=== PATIENT | female | born 1955 | race Two or more races ===

== ENCOUNTER 2018-10-07 22:03 | Emergency (ER) | payer OTHER ==
[~2018-10-07] VITALS: Ht 170.2 cm; Wt 79.8 kg
--- NOTE | 2018-10-07 22:10 | NUR ---
Patient ambulated with stable gait. A/Ox4. Patient came for c/o R.Knee pain x1 day. Pain 01/03. Localized to the knee, non-radiating. Respiratory even and unlabored, no cough no sob. Patient denies any fever, or chill. Patient states she has limited mobility in the RLE and ADL's when ambulating. Patient in bed at lowest position, sr upx2, call light within reach. Fall precautions implemented per protocol.
--- NOTE | 2018-10-07 22:15 | NUR ---
ERMD at bedside
[2018-10-07] MEDS ORDERED: HYDROCODONE/APAP 5-325MG TABLET ONE (22:29)
[2018-10-07] MEDS ORDERED: HYDROCODONE/APAP 5-325MG TABLET PO ONE (22:30)
[2018-10-07] MEDS ORDERED: KETOROLAC TROMETHAMINE 30 MG INJ IM ONE (23:15)
[2018-10-07] MEDS ORDERED: KETOROLAC TROMETHAMINE 30 MG INJ ONE (23:18)
--- NOTE | 2018-10-07 23:44 | NUR ---
Patient discharged to home in stable conditon. Written and verbal after care instructions given. Patient verbalizes understanding of instructions. Patient ambulated with stable gait.
[2018-10-07 23:45] VITALS: BP 151/83
== END 2018-10-07 23:46 | disposition home or self-care (01) ==
LOC: ER 22:03
DX: M25.561 Pain in right knee (principal); E03.9 Hypothyroidism, unspecified
CPT/HCPCS: 73564; 96372; 99283; J1885; A4663